=== PATIENT | female | born 1985 | race Caucasian/White ===

== ENCOUNTER 2018-01-20 14:04 | Emergency (ER) | payer MEDICAID ==
[~2018-01-20] VITALS: Ht 154.9 cm; Wt 65.9 kg
[~2018-01-20 14:04] MED LIST: CIPRO 500MG TA500 MG PO; LEVAQUIN 5500 MG/TA1 PO; MOTRIN 600600 MG/TAB PO; NIFEREX-15150 MG/CAP PO; NORCO 325 MG-51 TAB PO; PERCOCET 325 MG1 TA2 PO; PRENATAL MVI; PROBIOTIC-MAJOR PO; PROCARDIA XL 3030 MG PO; PYRIDIUM 100MG100 MG PO; ZOFRAN 4MG T4 MG/TAB PO
[2018-01-20 14:11] VITALS: TEMP 97.8
[2018-01-20] MEDS ORDERED: ZESTRIL 10MG10 MG PO ×2 (14:13→17:33)
[2018-01-20] MEDS ORDERED: LATUDA20 MG PO (14:14)
[2018-01-20] MEDS ORDERED: ATARAX 25MG25 MG/TAB PO (14:14)
[2018-01-20 14:27] LABS: COLLECTION METHOD CLEAN CATCH
[2018-01-20 14:38] LABS: MUCOUS Present /lpf; PH 8 (5-8); URINE APPEARANCE Hazy; URINE BACTERIA None Seen /hpf; URINE BILIRUBIN Negative (NEGATIVE); URINE BLOOD Negative (NEGATIVE); URINE COLOR Yellow; URINE GLUCOSE Negative (NEGATIVE); URINE KETONE Negative (NEGATIVE); URINE LEUKOCYTE ESTERASE Trace (NEGATIVE); URINE NITRATE Negative (NEGATIVE); URINE PROTEIN(semi-quant) Negative (NEGATIVE); URINE UROBILINOGEN Negative (NEGATIVE)
[2018-01-20] MEDS ORDERED: MOTRIN 800800 MG/TAB PO (16:45)
[2018-01-20 17:30] LABS: BASO # 0.1 (0.0-0.2); BASO % 0.9 % (0.0-2.0); EOS # 0.3 (0.0-0.7); EOS % 2.6 % (0-4.0); GRAN # 6.5 (1.4-6.5); GRAN % 65.5 % (42.2-75.2); HEMATOCRIT 45.5 % (37.0-47.0); HEMOGLOBIN 15.6 g/dl (12.5-16.0); LYMPH # 2.2 (1.2-3.4); LYMPH % 22.1 % (20.0-51.0); MEAN CELL VOLUME 88 fl (80.0-100.0); MEAN CORPUSCULAR HEMOGLOBIN 30 pg (27.0-31.0); MEAN CORPUSCULAR HGB CONC 34 g/dl (33.0-37.0); MEAN PLATELET VOLUME 9.4 fl (7.4-10.4); MONO # 0.8 (0.1-0.6); MONO % 8.3 % (1.7-9.3); PLATELET COUNT 336 K/mm3 (130-400); RED BLOOD COUNT 5.18 M/mm3 (4.10-5.30); REDCELL DISTRIBUTION WIDTH-CV 13.6 % (11.5-14.5)
[2018-01-20] MEDS ORDERED: ZOFRAN 4MG T4 MG/TAB PO (17:33)
[2018-01-20 18:01] LABS: CALCIUM 9.2 mg/dL (8.4-10.2); CREATININE, serum 0.58 mg/dL (0.52-1.25); POTASSIUM 4.1 mmol/L (3.4-5.0)
[2018-01-20] MEDS ORDERED: ULTRAM 50MG TAB50 MG PO (18:21)
[2018-01-20 18:36] VITALS: BP 165/94; PULSE 85
== END 2018-01-20 18:36 | disposition home or self-care (01) ==
LOC: COL.ER 14:04
PROVIDERS: Emergency Medicine; Surgery
DX: R10.9 Unspecified abdominal pain (principal); Q61.5 Medullary cystic kidney
CPT/HCPCS: J0780; J1200; J3010; J7030

== ENCOUNTER 2018-01-23 12:13 | Emergency (ER) | payer MEDICAID ==
[~2018-01-23] VITALS: Ht 154.9 cm; Wt 65.0 kg
[~2018-01-23 12:13] MED LIST changes: +ATARAX 25MG25 MG/TAB PO; +LATUDA20 MG PO; +MOTRIN 800800 MG/TAB PO; +ULTRAM 50MG TAB50 MG PO; +ZESTRIL 10MG10 MG PO
[2018-01-23 12:17] VITALS: BP 145/70; TEMP 97.7
[2018-01-23 13:04] LABS: BASO # 0.1 (0.0-0.2); BASO % 1.3 % (0.0-2.0); EOS # 0.3 (0.0-0.7); EOS % 4.7 % (0-4.0); GRAN # 3.6 (1.4-6.5); GRAN % 52.8 % (42.2-75.2); HEMATOCRIT 48.2 % (37.0-47.0); LYMPH % 29.1 % (20.0-51.0); MEAN CELL VOLUME 89 fl (80.0-100.0); MEAN CORPUSCULAR HEMOGLOBIN 30 pg (27.0-31.0); MEAN CORPUSCULAR HGB CONC 33 g/dl (33.0-37.0); MEAN PLATELET VOLUME 9.3 fl (7.4-10.4); MONO # 0.8 (0.1-0.6); MONO % 11.7 % (1.7-9.3); PLATELET COUNT 341 K/mm3 (130-400); RED BLOOD COUNT 5.42 M/mm3 (4.10-5.30); REDCELL DISTRIBUTION WIDTH-CV 13.7 % (11.5-14.5)
[2018-01-23 13:15] LABS: ALBUMIN 4.4 gm/dL (3.5-5.0); BILIRUBIN,TOTAL 0.5 mg/dL (0.0-1.0); CALCIUM 9.7 mg/dL (8.4-10.2); CREATININE, serum 0.65 mg/dL (0.52-1.25); POTASSIUM 4.4 mmol/L (3.4-5.0); TOTAL PROTEIN 7.9 gm/dL (6.4-8.2)
[2018-01-23 13:19] LABS: C-REACTIVE PROTEIN 0.5 mg/dL (0.0-0.9)
[2018-01-23 13:24] LABS: TRICYCLIC ANTIDEPRESS URINE NEGATIVE
[2018-01-23] MEDS ORDERED: NORCO 325 MG-51 TAB PO (13:54)
[2018-01-23 14:29] LABS: COLLECTION METHOD CLEAN CATCH
[2018-01-23 14:31] VITALS: PULSE 98
[2018-01-23 14:35] LABS: MUCOUS Present /lpf; PH 7 (5-8); URINE APPEARANCE Clear; URINE BACTERIA None Seen /hpf; URINE BILIRUBIN Negative (NEGATIVE); URINE BLOOD Negative (NEGATIVE); URINE COLOR Yellow; URINE GLUCOSE Negative (NEGATIVE); URINE KETONE Negative (NEGATIVE); URINE LEUKOCYTE ESTERASE Negative (NEGATIVE); URINE NITRATE Negative (NEGATIVE); URINE PROTEIN(semi-quant) Negative (NEGATIVE); URINE RBC 0-2 /hpf; URINE UROBILINOGEN Negative (NEGATIVE)
== END 2018-01-23 14:32 | disposition home or self-care (01) ==
LOC: COL.ER 12:13
PROVIDERS: Physician Assistant
DX: R10.9 Unspecified abdominal pain (principal); F31.9 Bipolar disorder, unspecified; F41.9 Anxiety disorder, unspecified; F17.210 Nicotine dependence, cigarettes, uncomplicated; Z87.442 Personal history of urinary calculi
CPT/HCPCS: J2405; J3010; J7030

== ENCOUNTER 2018-01-29 18:38 | Emergency (ER) | payer MEDICAID ==
[~2018-01-29] VITALS: Ht 154.9 cm; Wt 65.9 kg
[2018-01-29 18:41] VITALS: TEMP 98.2
[2018-01-29 18:52] LABS: COLLECTION METHOD CLEAN CATCH
[2018-01-29 18:59] LABS: MUCOUS Present /lpf; PH 7 (5-8); URINE APPEARANCE Hazy; URINE BACTERIA None Seen /hpf; URINE BILIRUBIN Negative (NEGATIVE); URINE BLOOD Negative (NEGATIVE); URINE COLOR Yellow; URINE GLUCOSE Negative (NEGATIVE); URINE KETONE Negative (NEGATIVE); URINE LEUKOCYTE ESTERASE 2+ (NEGATIVE); URINE NITRATE Negative (NEGATIVE); URINE PROTEIN(semi-quant) Negative (NEGATIVE); URINE RBC 0-2 /hpf; URINE UROBILINOGEN Negative (NEGATIVE)
[2018-01-29] MEDS ORDERED: PERCOCET 325 MG1 TA2 PO (19:55)
[2018-01-29 20:05] VITALS: BP 135/88; PULSE 91
== END 2018-01-29 20:06 | disposition home or self-care (01) ==
LOC: COL.ER 18:38
PROVIDERS: Emergency Medicine
DX: R51 Headache (principal); R10.9 Unspecified abdominal pain; F17.210 Nicotine dependence, cigarettes, uncomplicated; Z95.5 Presence of coronary angioplasty implant and graft
CPT/HCPCS: J3010

== ENCOUNTER 2018-02-08 18:04 | Emergency (ER) | payer MEDICAID ==
[~2018-02-08] VITALS: Ht 154.9 cm; Wt 68.2 kg
[2018-02-08 18:05] VITALS: BP 143/126; PULSE 97; TEMP 97.4
[2018-02-08 18:26] LABS: COLLECTION METHOD CLEAN CATCH
[2018-02-08 18:33] LABS: MUCOUS Present /lpf; PH 6 (5-8); URINE APPEARANCE Hazy; URINE BACTERIA None Seen /hpf; URINE BILIRUBIN Negative (NEGATIVE); URINE BLOOD 1+ (NEGATIVE); URINE COLOR Yellow; URINE GLUCOSE Negative (NEGATIVE); URINE KETONE Negative (NEGATIVE); URINE LEUKOCYTE ESTERASE Trace (NEGATIVE); URINE NITRATE Negative (NEGATIVE); URINE PROTEIN(semi-quant) Negative (NEGATIVE); URINE UROBILINOGEN Negative (NEGATIVE)
[2018-02-08] MEDS ORDERED: TESSALON P100 MG/CAP PO (19:40)
[2018-02-08] MEDS ORDERED: MACROBID 1100 MG/CAP PO ×2 (19:40)
[2018-02-08] MEDS ORDERED: CIPRO 250MG TA250 MG PO (19:50)
== END 2018-02-08 19:57 | disposition home or self-care (01) ==
LOC: COL.ER 18:04
PROVIDERS: Physician Assistant
DX: J40 Bronchitis, not specified as acute or chronic (principal); J06.9 Acute upper respiratory infection, unspecified; N39.0 Urinary tract infection, site not specified; F17.210 Nicotine dependence, cigarettes, uncomplicated

== ENCOUNTER 2018-02-15 12:51 | Emergency (ER) | payer MEDICAID ==
[~2018-02-15] VITALS: Ht 154.9 cm; Wt 68.2 kg
[~2018-02-15 12:51] MED LIST changes: +CIPRO 250MG TA250 MG PO; +MACROBID 1100 MG/CAP PO; +TESSALON P100 MG/CAP PO
[2018-02-15 13:32] LABS: COLLECTION METHOD CLEAN CATCH
[2018-02-15 13:41] LABS: MUCOUS Present /lpf; PH 6 (5-8); SQUAMOUS EPITHELIAL 20-50 /hpf; URINE APPEARANCE Cloudy; URINE BACTERIA None Seen /hpf; URINE BILIRUBIN Negative (NEGATIVE); URINE BLOOD Negative (NEGATIVE); URINE COLOR Amber; URINE GLUCOSE Negative (NEGATIVE); URINE KETONE Trace (NEGATIVE); URINE LEUKOCYTE ESTERASE 3+ (NEGATIVE); URINE NITRATE Negative (NEGATIVE); URINE PROTEIN(semi-quant) 1+ (NEGATIVE)
[2018-02-15 14:00] VITALS: BP 128/86; PULSE 98; TEMP 97.7
[2018-02-15] MEDS ORDERED: PHENERGAN 25 TA25 MG PO (15:30)
== END 2018-02-15 15:30 | disposition home or self-care (01) ==
LOC: COL.ER 12:51
PROVIDERS: Physician Assistant
DX: R10.9 Unspecified abdominal pain (principal); F17.210 Nicotine dependence, cigarettes, uncomplicated; Z87.442 Personal history of urinary calculi; Z88.6 Allergy status to analgesic agent; Z88.1 Allergy status to other antibiotic agents
CPT/HCPCS: J2270; J2550

== ENCOUNTER 2019-06-11 17:39 | Emergency (ER) | payer SELFPAY ==
[~2019-06-11] VITALS: Ht 154.9 cm; Wt 80.5 kg
[~2019-06-11 17:39] MED LIST changes: +PHENERGAN 25 TA25 MG PO
[2019-06-11 17:57] VITALS: TEMP 98.3
[2019-06-11 18:02] LABS: COLLECTION METHOD CLEAN CATCH
[2019-06-11 18:07] LABS: PH 6 (5-8); URINE APPEARANCE Hazy; URINE BACTERIA None Seen /hpf; URINE BILIRUBIN Negative (NEGATIVE); URINE BLOOD Negative (NEGATIVE); URINE COLOR Straw; URINE GLUCOSE Negative (NEGATIVE); URINE KETONE Negative (NEGATIVE); URINE LEUKOCYTE ESTERASE Negative (NEGATIVE); URINE NITRATE Negative (NEGATIVE); URINE PROTEIN(semi-quant) Negative (NEGATIVE); URINE RBC 0-2 /hpf; URINE UROBILINOGEN Negative (NEGATIVE)
[2019-06-11] MEDS ORDERED: NAPROSYN500 MG PO (18:39)
[2019-06-11 19:17] LABS: BASO # 0.1 (0.0-0.2); BASO % 0.9 % (0.0-2.0); EOS # 0.4 (0.0-0.7); EOS % 4.1 % (0-4.0); GRAN # 5.7 (1.4-6.5); GRAN % 59.3 % (42.2-75.2); HEMATOCRIT 39.9 % (37.0-47.0); HEMOGLOBIN 13.1 g/dl (12.5-16.0); LYMPH # 2.7 (1.2-3.4); LYMPH % 27.9 % (20.0-51.0); MEAN CELL VOLUME 89 fl (80.0-100.0); MEAN CORPUSCULAR HEMOGLOBIN 29 pg (27.0-31.0); MEAN CORPUSCULAR HGB CONC 33 g/dl (33.0-37.0); MEAN PLATELET VOLUME 9.7 fl (7.4-10.4); MONO # 0.7 (0.1-0.6); MONO % 7.1 % (1.7-9.3); PLATELET COUNT 390 K/mm3 (130-400); RED BLOOD COUNT 4.47 M/mm3 (4.10-5.30); REDCELL DISTRIBUTION WIDTH-CV 12.6 % (11.5-14.5)
[2019-06-11 19:27] LABS: C-REACTIVE PROTEIN 0.9 mg/dL (0.0-0.9); CALCIUM 9.1 mg/dL (8.4-10.2); CREATININE, serum 0.51 (0.52-1.25)
[2019-06-11] MEDS ORDERED: NORCO 325 MG-51 TAB PO (20:02)
[2019-06-11 20:24] VITALS: BP 124/80; PULSE 78
== END 2019-06-11 20:24 | disposition home or self-care (01) ==
LOC: COL.ER 17:39
PROVIDERS: Emergency Medicine
DX: N23 Unspecified renal colic (principal)
CPT/HCPCS: J0780; J1170; J7030; Q9967

== ENCOUNTER 2019-06-19 07:49 | Emergency (ER) | payer OTHER ==
[~2019-06-19] VITALS: Ht 154.9 cm; Wt 83.6 kg
[~2019-06-19 07:49] MED LIST changes: +NAPROSYN500 MG PO
[2019-06-19 07:56] VITALS: BP 134/94; TEMP 97.4
[2019-06-19 08:07] LABS: COLLECTION METHOD CLEAN CATCH
[2019-06-19 08:11] LABS: BASO # 0.1 (0.0-0.2); BASO % 0.7 % (0.0-2.0); EOS # 0.3 (0.0-0.7); EOS % 3.9 % (0-4.0); GRAN # 5.8 (1.4-6.5); GRAN % 68.5 % (42.2-75.2); HEMATOCRIT 44.8 % (37.0-47.0); HEMOGLOBIN 14.5 g/dl (12.5-16.0); LYMPH # 1.7 (1.2-3.4); LYMPH % 19.9 % (20.0-51.0); MEAN CELL VOLUME 90 fl (80.0-100.0); MEAN CORPUSCULAR HEMOGLOBIN 29 pg (27.0-31.0); MEAN CORPUSCULAR HGB CONC 32 g/dl (33.0-37.0); MEAN PLATELET VOLUME 9.2 fl (7.4-10.4); MONO # 0.6 (0.1-0.6); MONO % 6.5 % (1.7-9.3); PLATELET COUNT 335 K/mm3 (130-400); RED BLOOD COUNT 4.97 M/mm3 (4.10-5.30); REDCELL DISTRIBUTION WIDTH-CV 13.5 % (11.5-14.5)
[2019-06-19 08:13] LABS: PH 6 (5-8); URINE APPEARANCE Clear; URINE BACTERIA None Seen /hpf; URINE BILIRUBIN Negative (NEGATIVE); URINE BLOOD Negative (NEGATIVE); URINE COLOR Colorless; URINE GLUCOSE Negative (NEGATIVE); URINE KETONE Negative (NEGATIVE); URINE LEUKOCYTE ESTERASE Negative (NEGATIVE); URINE NITRATE Negative (NEGATIVE); URINE PROTEIN(semi-quant) Negative (NEGATIVE); URINE RBC 0-2 /hpf; URINE UROBILINOGEN Negative (NEGATIVE)
[2019-06-19 08:24] LABS: ALBUMIN 4.6 gm/dL (3.5-5.0); BILIRUBIN,TOTAL 0.3 mg/dL (0.0-1.0); C-REACTIVE PROTEIN 1.4 mg/dL (0.0-0.9); CALCIUM 9.9 mg/dL (8.4-10.2); CREATININE, serum 0.51 (0.52-1.25); POTASSIUM 3.8 mmol/L (3.4-5.0); TOTAL PROTEIN 8.2 gm/dL (6.4-8.2)
[2019-06-19] MEDS ORDERED: NORCO 325 MG-7.1 TAB PO (08:40)
[2019-06-19 08:49] VITALS: PULSE 82
== END 2019-06-19 08:49 | disposition home or self-care (01) ==
LOC: COL.ER 07:49
PROVIDERS: Family Medicine
DX: R10.9 Unspecified abdominal pain (principal); I10 Essential (primary) hypertension; Z87.442 Personal history of urinary calculi
CPT/HCPCS: J2405; J3010; J7030

== ENCOUNTER 2019-10-06 18:13 | Emergency (ER) | payer SELFPAY ==
[~2019-10-06] VITALS: Ht 154.9 cm; Wt 80.0 kg
[~2019-10-06 18:13] MED LIST changes: +NORCO 325 MG-7.1 TAB PO
[2019-10-06 18:22] VITALS: BP 126/84; TEMP 97.7
[2019-10-06 19:10] LABS: COLLECTION METHOD CLEAN CATCH
[2019-10-06 19:15] LABS: BASO # 0.1 (0.0-0.2); EOS # 0.3 (0.0-0.7); EOS % 3.2 % (0-4.0); GRAN # 4.5 (1.4-6.5); GRAN % 56.2 % (42.2-75.2); HEMATOCRIT 41.9 % (37.0-47.0); LYMPH # 2.6 (1.2-3.4); LYMPH % 32.2 % (20.0-51.0); MEAN CELL VOLUME 87 fl (80.0-100.0); MEAN CORPUSCULAR HEMOGLOBIN 29 pg (27.0-31.0); MEAN CORPUSCULAR HGB CONC 33 g/dl (33.0-37.0); MONO # 0.6 (0.1-0.6); MONO % 7.1 % (1.7-9.3); PLATELET COUNT 401 K/mm3 (130-400); RED BLOOD COUNT 4.84 M/mm3 (4.10-5.30); REDCELL DISTRIBUTION WIDTH-CV 12.3 % (11.5-14.5)
[2019-10-06 19:25] LABS: MUCOUS Present /lpf; PH 6 (5-8); URINE APPEARANCE Hazy; URINE BACTERIA None Seen /hpf; URINE BILIRUBIN Negative (NEGATIVE); URINE BLOOD 1+ (NEGATIVE); URINE COLOR Yellow; URINE GLUCOSE Negative (NEGATIVE); URINE KETONE Negative (NEGATIVE); URINE LEUKOCYTE ESTERASE Trace (NEGATIVE); URINE NITRATE Negative (NEGATIVE); URINE PROTEIN(semi-quant) Negative (NEGATIVE); URINE UROBILINOGEN Negative (NEGATIVE)
[2019-10-06 19:27] LABS: ALBUMIN 4.5 gm/dL (3.5-5.0); BILIRUBIN,TOTAL 0.3 mg/dL (0.0-1.0); CALCIUM 9.9 mg/dL (8.4-10.2); CREATININE, serum 0.55 (0.52-1.25); POTASSIUM 3.7 mmol/L (3.4-5.0)
[2019-10-06] MEDS ORDERED: NORCO 325 MG-7.1 TAB PO (20:28)
[2019-10-06 20:35] VITALS: PULSE 97
== END 2019-10-06 20:37 | disposition home or self-care (01) ==
LOC: COL.ER 18:13
PROVIDERS: Nurse Practitioner
DX: R10.9 Unspecified abdominal pain (principal); F31.9 Bipolar disorder, unspecified; F17.210 Nicotine dependence, cigarettes, uncomplicated; Z88.5 Allergy status to narcotic agent; Z88.1 Allergy status to other antibiotic agents; Z87.442 Personal history of urinary calculi
CPT/HCPCS: J1170; J2270; J2405; J7030

== ENCOUNTER 2019-10-12 18:07 | Emergency (ER) | payer SELFPAY ==
[~2019-10-12] VITALS: Ht 154.9 cm; Wt 81.8 kg
[2019-10-12 18:19] VITALS: TEMP 98.9
[2019-10-12 22:14] VITALS: BP 137/80; PULSE 87
== END 2019-10-12 22:15 | disposition home or self-care (01) ==
LOC: COL.ER 18:07
DX: S46.912A Strain of unspecified muscle, fascia and tendon at shoulder and upper arm level, left arm, initial encounter (principal); I10 Essential (primary) hypertension; F41.9 Anxiety disorder, unspecified; F17.210 Nicotine dependence, cigarettes, uncomplicated
CPT/HCPCS: J1170; J2360

== ENCOUNTER 2019-11-23 17:11 | Emergency (ER) | payer SELFPAY ==
[~2019-11-23] VITALS: Ht 154.9 cm; Wt 84.5 kg
[2019-11-23 18:04] LABS: COLLECTION METHOD CLEAN CATCH
[2019-11-23 18:07] LABS: BASO # 0.1 (0.0-0.2); BASO % 0.9 % (0.0-2.0); EOS # 0.3 (0.0-0.7); GRAN # 4.7 (1.4-6.5); HEMOGLOBIN 13.9 g/dl (12.5-16.0); LYMPH # 2.3 (1.2-3.4); LYMPH % 28.8 % (20.0-51.0); MEAN CELL VOLUME 86 fl (80.0-100.0); MEAN CORPUSCULAR HEMOGLOBIN 29 pg (27.0-31.0); MEAN CORPUSCULAR HGB CONC 34 g/dl (33.0-37.0); MEAN PLATELET VOLUME 9.1 fl (7.4-10.4); MONO # 0.6 (0.1-0.6); PLATELET COUNT 309 K/mm3 (130-400); RED BLOOD COUNT 4.77 M/mm3 (4.10-5.30); REDCELL DISTRIBUTION WIDTH-CV 12.5 % (11.5-14.5)
[2019-11-23 18:20] LABS: ALBUMIN 4.3 gm/dL (3.5-5.0); BILIRUBIN,TOTAL 0.2 mg/dL (0.0-1.0); CALCIUM 8.9 mg/dL (8.4-10.2); CREATININE, serum 0.56 (0.52-1.25); POTASSIUM 3.4 mmol/L (3.4-5.0); TOTAL PROTEIN 7.6 gm/dL (6.4-8.2)
[2019-11-23 18:31] LABS: MUCOUS Present /lpf; URINE BACTERIA Occasional /hpf
[2019-11-23 19:08] LABS: PH 6 (5-8); URINE APPEARANCE Hazy; URINE BILIRUBIN Negative (NEGATIVE); URINE BLOOD 1+ (NEGATIVE); URINE COLOR Yellow; URINE GLUCOSE Negative (NEGATIVE); URINE KETONE Negative (NEGATIVE); URINE LEUKOCYTE ESTERASE 1+ (NEGATIVE); URINE NITRATE Negative (NEGATIVE); URINE PROTEIN(semi-quant) Negative (NEGATIVE); URINE UROBILINOGEN Negative (NEGATIVE)
[2019-11-23] MEDS ORDERED: SEPTRA DS 8001 TAB PO (20:08)
[2019-11-23] MEDS ORDERED: PERCOCET 325 MG1 TA2 PO (20:08)
[2019-11-23 20:17] VITALS: BP 132/86; PULSE 76; TEMP 98.4
== END 2019-11-23 20:17 | disposition home or self-care (01) ==
LOC: COL.ER 17:11
PROVIDERS: Emergency Medicine
DX: N39.0 Urinary tract infection, site not specified (principal); F17.210 Nicotine dependence, cigarettes, uncomplicated; Z87.442 Personal history of urinary calculi
CPT/HCPCS: J1170; J2405; J3010; J7030; Q9967

== ENCOUNTER 2019-12-15 12:29 | Emergency (ER) | payer SELFPAY ==
[~2019-12-15] VITALS: Ht 154.9 cm; Wt 84.5 kg
[~2019-12-15 12:29] MED LIST changes: +SEPTRA DS 8001 TAB PO
[2019-12-15 12:53] VITALS: BP 155/67; TEMP 97.9
[2019-12-15 13:06] LABS: COLLECTION METHOD CLEAN CATCH
[2019-12-15 13:20] LABS: MUCOUS Present /lpf; PH 6 (5-8); SQUAMOUS EPITHELIAL 20-50 /hpf; URINE APPEARANCE Cloudy; URINE BACTERIA None Seen /hpf; URINE BILIRUBIN Negative (NEGATIVE); URINE BLOOD Negative (NEGATIVE); URINE COLOR Yellow; URINE GLUCOSE Negative (NEGATIVE); URINE KETONE 1+ (NEGATIVE); URINE LEUKOCYTE ESTERASE Trace (NEGATIVE); URINE NITRATE Negative (NEGATIVE); URINE PROTEIN(semi-quant) 1+ (NEGATIVE); URINE RBC None Seen /hpf; URINE UROBILINOGEN Negative (NEGATIVE)
[2019-12-15 15:23] LABS: COLLECTION METHOD CLEAN CATCH
[2019-12-15 15:31] LABS: MUCOUS Present /lpf; PH 7 (5-8); URINE APPEARANCE Hazy; URINE BACTERIA None Seen /hpf; URINE BILIRUBIN Negative (NEGATIVE); URINE BLOOD Negative (NEGATIVE); URINE COLOR Yellow; URINE GLUCOSE Negative (NEGATIVE); URINE KETONE 1+ (NEGATIVE); URINE LEUKOCYTE ESTERASE Trace (NEGATIVE); URINE NITRATE Negative (NEGATIVE); URINE PROTEIN(semi-quant) Negative (NEGATIVE); URINE UROBILINOGEN Negative (NEGATIVE)
[2019-12-15] MEDS ORDERED: CIPRO 500MG TA500 MG PO (15:50)
[2019-12-15] MEDS ORDERED: ZOFRAN ODT4 MG PO (15:50)
[2019-12-15 16:00] VITALS: PULSE 84
== END 2019-12-15 16:06 | disposition home or self-care (01) ==
LOC: COL.ER 12:29
PROVIDERS: Family Medicine; Physician Assistant
DX: N39.0 Urinary tract infection, site not specified (principal); F17.210 Nicotine dependence, cigarettes, uncomplicated; Z88.1 Allergy status to other antibiotic agents; Z88.8 Allergy status to other drugs, medicaments and biological substances

== ENCOUNTER 2019-12-20 17:12 | Emergency (ER) | payer SELFPAY ==
[~2019-12-20] VITALS: Ht 154.9 cm; Wt 84.5 kg
[~2019-12-20 17:12] MED LIST changes: +ZOFRAN ODT4 MG PO
[2019-12-20 17:20] VITALS: TEMP 98.2
[2019-12-20 18:05] LABS: COLLECTION METHOD CLEAN CATCH
[2019-12-20] MEDS ORDERED: ADDERALL5 MG PO (18:06)
[2019-12-20 18:16] LABS: MUCOUS Present /lpf; PH 6 (5-8); URINE APPEARANCE Hazy; URINE BACTERIA None Seen /hpf; URINE BILIRUBIN Negative (NEGATIVE); URINE BLOOD Negative (NEGATIVE); URINE COLOR Yellow; URINE GLUCOSE Negative (NEGATIVE); URINE KETONE Negative (NEGATIVE); URINE LEUKOCYTE ESTERASE Trace (NEGATIVE); URINE NITRATE Negative (NEGATIVE); URINE PROTEIN(semi-quant) Negative (NEGATIVE); URINE RBC 0-2 /hpf; URINE UROBILINOGEN Negative (NEGATIVE)
[2019-12-20] MEDS ORDERED: ZOFRAN ODT4 MG PO (18:17)
[2019-12-20 19:16] VITALS: BP 111/75; PULSE 78
== END 2019-12-20 19:17 | disposition home or self-care (01) ==
LOC: COL.ER 17:12
PROVIDERS: Emergency Medicine
DX: N20.1 Calculus of ureter (principal); Z96.0 Presence of urogenital implants
CPT/HCPCS: J1170

== ENCOUNTER 2020-01-06 17:16 | Emergency (ER) | payer SELFPAY ==
[~2020-01-06] VITALS: Ht 154.9 cm; Wt 81.8 kg
[~2020-01-06 17:16] MED LIST changes: +ADDERALL5 MG PO
[2020-01-06] MEDS ORDERED: ADDERALL10 MG PO (17:59)
[2020-01-06] MEDS ORDERED: CATAPRES 0.1MG0.1 MG PO (18:00)
[2020-01-06] MEDS ORDERED: PROZAC60 MG (18:00)
[2020-01-06 19:45] LABS: STREP SCREEN NEGATIVE
[2020-01-06 20:05] VITALS: BP 142/70; PULSE 88; TEMP 97.2
== END 2020-01-06 20:10 | disposition home or self-care (01) ==
LOC: COL.ER 17:16
PROVIDERS: Physician Assistant
DX: J02.9 Acute pharyngitis, unspecified (principal); G89.29 Other chronic pain; R10.2 Pelvic and perineal pain; F31.9 Bipolar disorder, unspecified; F41.9 Anxiety disorder, unspecified; F17.210 Nicotine dependence, cigarettes, uncomplicated

== ENCOUNTER 2020-08-14 15:42 | Emergency (ER) | payer SELFPAY ==
[~2020-08-14] VITALS: Ht 154.9 cm; Wt 69.5 kg
[~2020-08-14 15:42] MED LIST changes: +ADDERALL10 MG PO; +CATAPRES 0.1MG0.1 MG PO; +PROZAC60 MG
[2020-08-14 16:34] LABS: BASO # 0.1 (0.0-0.2); BASO % 0.9 % (0.0-2.0); EOS # 0.4 (0.0-0.7); EOS % 5.5 % (0-4.0); GRAN % 60.2 % (42.2-75.2); HEMATOCRIT 43.6 % (37.0-47.0); HEMOGLOBIN 14.3 g/dl (12.5-16.0); LYMPH # 1.7 (1.2-3.4); LYMPH % 25.8 % (20.0-51.0); MEAN CELL VOLUME 90 fl (80.0-100.0); MEAN CORPUSCULAR HEMOGLOBIN 29 pg (27.0-31.0); MEAN CORPUSCULAR HGB CONC 33 g/dl (33.0-37.0); MEAN PLATELET VOLUME 9.1 fl (7.4-10.4); MONO # 0.5 (0.1-0.6); MONO % 7.3 % (1.7-9.3); PLATELET COUNT 315 K/mm3 (130-400); RED BLOOD COUNT 4.87 M/mm3 (4.10-5.30); REDCELL DISTRIBUTION WIDTH-CV 13.5 % (11.5-14.5)
[2020-08-14 16:47] LABS: ALANINE AMINOTRANSFERASE 36 U/L (4-34); ALBUMIN 4.4 gm/dL (3.5-5.0); ALKALINE PHOSPHATASE 74 U/L (50-136); ANION GAP 5 mmol/L (7-16); AST,SGOT 41 U/L (15-37); BILIRUBIN,TOTAL 0.5 mg/dL (0.0-1.0); BLOOD UREA NITROGEN 13 mg/dL (7-17); C-REACTIVE PROTEIN < 0.5 mg/dL (0.0-0.9); CALCIUM 9.4 mg/dL (8.4-10.2); CARBON DIOXIDE 29 mmol/L (22-30); CHLORIDE 104 mmol/L (98-107); CREATININE, serum 0.69 (0.52-1.25); GLUCOSE 79 mg/dL (74-106); POTASSIUM 4.3 mmol/L (3.4-5.0); SODIUM 138 mmol/L (137-145); TOTAL PROTEIN 7.5 gm/dL (6.4-8.2)
[2020-08-14 17:21] LABS: COLLECTION METHOD CLEAN CATCH
[2020-08-14 17:33] LABS: MUCOUS Present /lpf; PH 6 (5-8); SQUAMOUS EPITHELIAL >50 /hpf; URINE APPEARANCE Cloudy; URINE BACTERIA Occasional /hpf; URINE BILIRUBIN Negative (NEGATIVE); URINE BLOOD Negative (NEGATIVE); URINE COLOR Amber; URINE GLUCOSE Negative (NEGATIVE); URINE KETONE Negative (NEGATIVE); URINE LEUKOCYTE ESTERASE 2+ (NEGATIVE); URINE NITRATE Negative (NEGATIVE); URINE PROTEIN(semi-quant) 1+ (NEGATIVE)
[2020-08-14 18:27] VITALS: BP 136/68; PULSE 70; TEMP 98
== END 2020-08-14 18:25 | disposition home or self-care (01) ==
LOC: COL.ER 15:42
PROVIDERS: Emergency Medicine
DX: Q61.5 Medullary cystic kidney (principal); Z32.02 Encounter for pregnancy test, result negative; Z88.1 Allergy status to other antibiotic agents; Z88.6 Allergy status to analgesic agent; Z79.2 Long term (current) use of antibiotics; Z79.899 Other long term (current) drug therapy

== ENCOUNTER 2020-08-26 12:14 | Emergency (ER) | payer SELFPAY ==
[~2020-08-26] VITALS: Ht 154.9 cm; Wt 68.2 kg
[2020-08-26 13:09] LABS: COLLECTION METHOD CLEAN CATCH
[2020-08-26 13:11] LABS: BASO # 0.1 (0.0-0.2); BASO % 0.8 % (0.0-2.0); EOS # 0.4 (0.0-0.7); EOS % 5.1 % (0-4.0); GRAN # 4.5 (1.4-6.5); GRAN % 61.8 % (42.2-75.2); HEMATOCRIT 41.8 % (37.0-47.0); HEMOGLOBIN 13.9 g/dl (12.5-16.0); LYMPH # 1.7 (1.2-3.4); LYMPH % 23.7 % (20.0-51.0); MEAN CELL VOLUME 90 fl (80.0-100.0); MEAN CORPUSCULAR HEMOGLOBIN 30 pg (27.0-31.0); MEAN CORPUSCULAR HGB CONC 33 g/dl (33.0-37.0); MEAN PLATELET VOLUME 9.4 fl (7.4-10.4); MONO # 0.6 (0.1-0.6); MONO % 8.5 % (1.7-9.3); PLATELET COUNT 319 K/mm3 (130-400); RED BLOOD COUNT 4.63 M/mm3 (4.10-5.30); REDCELL DISTRIBUTION WIDTH-CV 13.4 % (11.5-14.5)
[2020-08-26 13:16] LABS: MUCOUS Present /lpf; PH 8 (5-8); SQUAMOUS EPITHELIAL 20-50 /hpf; URINE APPEARANCE Cloudy; URINE BACTERIA Rare /hpf; URINE BILIRUBIN Negative (NEGATIVE); URINE BLOOD Negative (NEGATIVE); URINE COLOR Yellow; URINE GLUCOSE Negative (NEGATIVE); URINE KETONE Negative (NEGATIVE); URINE LEUKOCYTE ESTERASE Negative (NEGATIVE); URINE NITRATE Negative (NEGATIVE); URINE PROTEIN(semi-quant) Negative (NEGATIVE); URINE UROBILINOGEN Negative (NEGATIVE)
[2020-08-26 13:25] LABS: ALANINE AMINOTRANSFERASE 28 U/L (4-34); ALBUMIN 4.2 gm/dL (3.5-5.0); ALKALINE PHOSPHATASE 71 U/L (50-136); ANION GAP 6 mmol/L (7-16); AST,SGOT 35 U/L (15-37); BILIRUBIN,TOTAL 0.5 mg/dL (0.0-1.0); BLOOD UREA NITROGEN 9 mg/dL (7-17); CALCIUM 9.1 mg/dL (8.4-10.2); CARBON DIOXIDE 26 mmol/L (22-30); CHLORIDE 104 mmol/L (98-107); CREATININE, serum 0.51 (0.52-1.25); GLUCOSE 85 mg/dL (74-106); LIPASE 62 U/L (23-300); POTASSIUM 3.5 mmol/L (3.4-5.0); SODIUM 136 mmol/L (137-145); TOTAL PROTEIN 7.2 gm/dL (6.4-8.2)
[2020-08-26 13:26] LABS: C-REACTIVE PROTEIN < 0.5 mg/dL (0.0-0.9)
[2020-08-26] MEDS ORDERED: NORCO 325 MG-51 TAB PO (14:07)
[2020-08-26 15:00] VITALS: BP 135/74; PULSE 66; TEMP 97.5
== END 2020-08-26 15:05 | disposition home or self-care (01) ==
LOC: COL.ER 12:14
PROVIDERS: Emergency Medicine
DX: O26.891 Other specified pregnancy related conditions, first trimester (principal); R10.9 Unspecified abdominal pain; Z3A.01 Less than 8 weeks gestation of pregnancy; Z88.1 Allergy status to other antibiotic agents
CPT/HCPCS: J1170; J2550; J7030

== ENCOUNTER 2021-04-26 16:28 | Emergency (ER) | payer MEDICAID ==
[~2021-04-26] VITALS: Ht 154.9 cm; Wt 77.3 kg
[2021-04-26 16:41] VITALS: BP 153/81; TEMP 98.1
[2021-04-26 17:48] LABS: COLLECTION METHOD CLEAN CATCH
[2021-04-26 18:06] LABS: BASO # 0.1 (0.0-0.2); BASO % 0.8 % (0.0-2.0); EOS # 0.3 (0.0-0.7); EOS % 3.2 % (0-4.0); GRAN # 6.1 (1.4-6.5); LYMPH # 1.9 (1.2-3.4); MEAN CELL VOLUME 90 fl (80.0-100.0); MEAN CORPUSCULAR HGB CONC 33 g/dl (33.0-37.0); MEAN PLATELET VOLUME 8.9 fl (7.4-10.4); MONO # 0.7 (0.1-0.6); MONO % 7.2 % (1.7-9.3); PLATELET COUNT 418 K/mm3 (130-400); RED BLOOD COUNT 3.28 M/mm3 (4.10-5.30); REDCELL DISTRIBUTION WIDTH-CV 14.3 % (11.5-14.5)
[2021-04-26 18:12] LABS: ALBUMIN 2.9 gm/dL (3.5-5.0); BILIRUBIN,TOTAL 0.1 mg/dL (0.0-1.0); C-REACTIVE PROTEIN 1.6 mg/dL (0.0-0.9); CREATININE, serum 0.75 (0.52-1.25); POTASSIUM 3.9 mmol/L (3.4-5.0); TOTAL PROTEIN 5.8 gm/dL (6.4-8.2)
[2021-04-26 18:14] LABS: HEMOGLOBIN 9.8 g/dl (12.5-16.0); MEAN CORPUSCULAR HEMOGLOBIN 30 pg (27.0-31.0)
[2021-04-26 18:15] LABS: HEMATOCRIT 29.5 % (37.0-47.0)
[2021-04-26 18:25] LABS: MUCOUS Present /lpf; PH 6 (5-8); URINE APPEARANCE Hazy; URINE BACTERIA None Seen /hpf; URINE BILIRUBIN Negative (NEGATIVE); URINE BLOOD 3+ (NEGATIVE); URINE COLOR Yellow; URINE GLUCOSE Negative (NEGATIVE); URINE KETONE Negative (NEGATIVE); URINE LEUKOCYTE ESTERASE 2+ (NEGATIVE); URINE NITRATE Negative (NEGATIVE); URINE PROTEIN(semi-quant) 1+ (NEGATIVE); URINE RBC >50 /hpf; URINE UROBILINOGEN Negative (NEGATIVE)
[2021-04-26] MEDS ORDERED: AMOXICILLIN 8751 TAB PO (20:09)
[2021-04-26] MEDS ORDERED: PERCOCET 325 MG1 TA2 PO (20:11)
[2021-04-26 20:32] VITALS: PULSE 68
== END 2021-04-26 20:32 | disposition home or self-care (01) ==
LOC: COL.ER 16:28
PROVIDERS: Nurse Practitioner
DX: N39.0 Urinary tract infection, site not specified (principal); Z88.1 Allergy status to other antibiotic agents; Z88.6 Allergy status to analgesic agent
CPT/HCPCS: Q9967

== ENCOUNTER 2021-12-19 15:37 | Emergency (ER) | payer SELFPAY ==
[~2021-12-19] VITALS: Ht 154.9 cm; Wt 86.4 kg
[~2021-12-19 15:37] MED LIST changes: +AMOXICILLIN 8751 TAB PO
[2021-12-19 16:22] VITALS: TEMP 97.6
[2021-12-19 16:37] LABS: COLLECTION METHOD CLEAN CATCH
[2021-12-19 16:45] LABS: MUCOUS Present (NOT PRESENT); PH 6 (5-8); URINE APPEARANCE Hazy (CLEAR/HAZY); URINE BACTERIA Rare /hpf (NONE SEEN); URINE BILIRUBIN Negative (NEGATIVE); URINE BLOOD Negative (NEGATIVE); URINE COLOR Yellow (YELLOW); URINE GLUCOSE Negative (NEGATIVE); URINE KETONE Negative (NEGATIVE); URINE LEUKOCYTE ESTERASE Negative (NEGATIVE); URINE NITRATE Negative (NEGATIVE); URINE PROTEIN(semi-quant) Negative (NEGATIVE); URINE RBC 0-2 /hpf (0-2); URINE UROBILINOGEN Negative (NEGATIVE)
[2021-12-19 17:13] LABS: BASO # 0.1 K/mm3 (0.0-0.2); BASO % 1.4 % (0.0-2.0); EOS # 0.3 K/mm3 (0.0-0.7); EOS % 4.5 % (0.0-4.0); GRAN # 3.2 K/mm3 (1.4-6.5); GRAN % 51.1 % (42.2-75.2); HEMATOCRIT 41.8 % (37.0-47.0); HEMOGLOBIN 13.7 g/dl (12.5-16.0); LYMPH # 2.1 K/mm3 (1.2-3.4); LYMPH % 32.8 % (20.0-51.0); MEAN CELL VOLUME 90 fl (80.0-100.0); MEAN CORPUSCULAR HEMOGLOBIN 30 pg (27-31); MEAN CORPUSCULAR HGB CONC 33 g/dl (33.0-37.0); MONO # 0.6 K/mm3 (0.1-0.6); PLATELET COUNT 377 K/mm3 (130-400); RED BLOOD COUNT 4.63 M/mm3 (4.10-5.30); REDCELL DISTRIBUTION WIDTH-CV 13.5 % (11.5-14.5)
[2021-12-19 17:28] LABS: ALBUMIN 4.2 gm/dL (3.5-5.0); BILIRUBIN,TOTAL 0.2 mg/dL (0.2-1.2); CALCIUM 9.6 mg/dL (8.4-10.2); CREATININE, serum 0.78 mg/dL (0.57-1.11); POTASSIUM 4.2 mmol/L (3.5-4.5); TOTAL PROTEIN 7.6 gm/dL (6.2-8.1)
[2021-12-19] MEDS ORDERED: NORCO 325 MG-51 TAB PO ×2 (18:10)
[2021-12-19] MEDS ORDERED: PERCOCET 325 MG1 TA2 PO (18:14)
[2021-12-19 18:15] VITALS: BP 144/80; PULSE 78
[2021-12-19] MEDS ORDERED: BACTRIM DS 8001 TAB PO (18:19)
== END 2021-12-19 18:15 | disposition home or self-care (01) ==
LOC: COL.ER 15:37
PROVIDERS: Emergency Medicine
DX: N13.2 Hydronephrosis with renal and ureteral calculous obstruction (principal); Q61.5 Medullary cystic kidney; F17.210 Nicotine dependence, cigarettes, uncomplicated; Z96.0 Presence of urogenital implants; Z98.890 Other specified postprocedural states; Z88.1 Allergy status to other antibiotic agents; Z88.6 Allergy status to analgesic agent; Z32.02 Encounter for pregnancy test, result negative
CPT/HCPCS: J1170; J2270; J7120

== ENCOUNTER 2022-01-03 13:48 | Day surgery (SDC) | payer SELFPAY ==
[~2022-01-03] VITALS: Ht 154.9 cm; Wt 87.6 kg
[~2022-01-03 13:48] MED LIST changes: +BACTRIM DS 8001 TAB PO
[2022-01-03] MEDS ORDERED: ZYPREXA15 MG PO (14:42)
[2022-01-03] MEDS ORDERED: FLOMAX 0.40.4 MG/CAP PO (14:43)
--- NOTE | 2022-01-03 15:23 | NUR ---
LR infusing at 100cc/hr 20G left wrist and Fentanyl 50mcg for left sided abdominal pain. Call light in reach.
--- NOTE | 2022-01-03 16:07 | NUR ---
Patient assisted up to the bathroom and is able to void and returns to room. Urine strained and no stones noted. Asking for more pain medication. Will ask for more pain medication.
--- NOTE | 2022-01-03 16:45 | NUR ---
States that she is beginning to have pain again. Rates pain at 8/10 and 50mcg of Fentanyl repeated per order of Hola Mckoy CRNA.
[2022-01-03] MEDS ORDERED: PERCOCET 325 MG1 TA2 PO (18:05)
[2022-01-03 19:18] VITALS: BP 144/90; PULSE 69; TEMP 98
[2022-01-03 20:02] VITALS: BP 116/82; PULSE 80
--- NOTE | 2022-01-03 21:25 | NUR ---
PATIENT TO ROOM 349 AT 1900. ALERT AND ORIENTED. C/O MILD PAIN. PRN TYLENOL GIVEN. REQUESTED SCRIPTS BE SENT TO DIFFERENT PHARMACY AND CANNOT BE DONE. CALL TO BY [facility] AND HOME [facility] ORDER IN PLACE AND GIVEN TO PATIENT. IV TO [facility] DC'[facility]. BANDAID APPLIED. VSS. DISCHARGE CRITERIA MET. PATIENT ATE, TOLERATED FOOD, VOIDED WITHOUT ISSUE. PATIENT DISCHARGED HOME WITH FRIENDS AT 1999. AMBULATED OUT BY THIS NURSE.
== END 2022-01-03 20:00 | disposition home or self-care (01) ==
LOC: SDCO 13:48 → SURG 19:09 → SDCO 20:00
DX: N20.2 Calculus of kidney with calculus of ureter (principal); Q61.5 Medullary cystic kidney; F17.210 Nicotine dependence, cigarettes, uncomplicated; Z79.899 Other long term (current) drug therapy
CPT/HCPCS: OP; C1769; J0690; J1100; J1940; J2270; J2405; J2704; J3010; J7120; Q9967

== ENCOUNTER 2022-01-16 13:52 | Emergency (ER) | payer SELFPAY ==
[~2022-01-16] VITALS: Ht 154.9 cm; Wt 89.5 kg
[~2022-01-16 13:52] MED LIST changes: +FLOMAX 0.40.4 MG/CAP PO; +ZYPREXA15 MG PO
[2022-01-16 14:42] LABS: HEMATOCRIT 41.4 % (37.0-47.0); HEMOGLOBIN 13.7 g/dl (12.5-16.0); MEAN CELL VOLUME 90 fl (80.0-100.0); MEAN CORPUSCULAR HEMOGLOBIN 30 pg (27-31); MEAN CORPUSCULAR HGB CONC 33 g/dl (33.0-37.0); PLATELET COUNT 352 K/mm3 (130-400); RED BLOOD COUNT 4.61 M/mm3 (4.10-5.30); REDCELL DISTRIBUTION WIDTH-CV 13.2 % (11.5-14.5)
[2022-01-16 15:10] LABS: BILIRUBIN,TOTAL 0.2 mg/dL (0.2-1.2); CALCIUM 9.3 mg/dL (8.4-10.2); CREATININE, serum 0.83 mg/dL (0.57-1.11); POTASSIUM 3.4 mmol/L (3.5-4.5); TOTAL PROTEIN 7.5 gm/dL (6.2-8.1)
[2022-01-16 15:27] LABS: BAND 6 % (0-10); EOSINOPHIL 2 % (0-4); LYMPHOCYTE 38 % (20.0-51.0); NEUTROPHILS 51 % (42.0-75.2); PLATELET ESTIMATE NORMAL (NORMAL)
[2022-01-16] MEDS ORDERED: ZOFRAN ODT4 MG PO (15:52)
[2022-01-16] MEDS ORDERED: FLOMAX 0.40.4 MG/CAP PO (15:52)
[2022-01-16] MEDS ORDERED: NORCO 325 MG-7.1 TAB PO (15:52)
[2022-01-16 16:27] LABS: COLLECTION METHOD CLEAN CATCH
[2022-01-16 16:35] LABS: PH 7 (5-8); SQUAMOUS EPITHELIAL 0-2 /hpf (0-10); URINE APPEARANCE Clear (CLEAR/HAZY); URINE BACTERIA Rare /hpf (NONE SEEN); URINE BILIRUBIN Negative (NEGATIVE); URINE BLOOD Negative (NEGATIVE); URINE COLOR Yellow (YELLOW); URINE GLUCOSE Negative (NEGATIVE); URINE KETONE Negative (NEGATIVE); URINE LEUKOCYTE ESTERASE Negative (NEGATIVE); URINE NITRATE Negative (NEGATIVE); URINE PROTEIN(semi-quant) Negative (NEGATIVE); URINE RBC 0-2 /hpf (0-2); URINE UROBILINOGEN Negative (NEGATIVE)
[2022-01-16 16:52] VITALS: BP 100/57; PULSE 82; TEMP 97.7
== END 2022-01-16 16:55 | disposition home or self-care (01) ==
LOC: COL.ER 13:52
PROVIDERS: Emergency Medicine
DX: N13.2 Hydronephrosis with renal and ureteral calculous obstruction (principal); D72.829 Elevated white blood cell count, unspecified; Z98.890 Other specified postprocedural states; Z96.0 Presence of urogenital implants; Z32.02 Encounter for pregnancy test, result negative
CPT/HCPCS: J1170; J2405

== ENCOUNTER 2022-01-22 19:19 | Emergency (ER) | payer SELFPAY ==
[~2022-01-22] VITALS: Ht 154.9 cm; Wt 89.5 kg
[2022-01-22 19:26] VITALS: TEMP 97.7
[2022-01-22 20:17] LABS: BASO # 0.1 K/mm3 (0.0-0.2); EOS # 0.3 K/mm3 (0.0-0.7); EOS % 4.5 % (0.0-4.0); GRAN # 4.2 K/mm3 (1.4-6.5); GRAN % 57.8 % (42.2-75.2); HEMATOCRIT 40.9 % (37.0-47.0); HEMOGLOBIN 13.5 g/dl (12.5-16.0); LYMPH % 27.7 % (20.0-51.0); MEAN CELL VOLUME 91 fl (80.0-100.0); MEAN CORPUSCULAR HEMOGLOBIN 30 pg (27-31); MEAN CORPUSCULAR HGB CONC 33 g/dl (33.0-37.0); MEAN PLATELET VOLUME 9.2 fl (7.4-10.4); MONO # 0.7 K/mm3 (0.1-0.6); MONO % 8.9 % (1.7-9.3); PLATELET COUNT 311 K/mm3 (130-400); RED BLOOD COUNT 4.51 M/mm3 (4.10-5.30); REDCELL DISTRIBUTION WIDTH-CV 13.2 % (11.5-14.5)
[2022-01-22 20:28] LABS: COLLECTION METHOD CLEAN CATCH
[2022-01-22 20:33] LABS: CALCIUM 9.2 mg/dL (8.4-10.2); CREATININE, serum 0.73 mg/dL (0.57-1.11); POTASSIUM 3.9 mmol/L (3.5-4.5)
[2022-01-22 20:35] LABS: PH 6 (5-8); URINE APPEARANCE Clear (CLEAR/HAZY); URINE BACTERIA Rare /hpf (NONE SEEN); URINE BILIRUBIN Negative (NEGATIVE); URINE BLOOD Negative (NEGATIVE); URINE COLOR Yellow (YELLOW); URINE GLUCOSE Negative (NEGATIVE); URINE KETONE Negative (NEGATIVE); URINE LEUKOCYTE ESTERASE Negative (NEGATIVE); URINE NITRATE Negative (NEGATIVE); URINE PROTEIN(semi-quant) Negative (NEGATIVE); URINE RBC 0-2 /hpf (0-2); URINE UROBILINOGEN Negative (NEGATIVE); URINE WBC 0-2 /hpf (0-2)
[2022-01-22 21:33] VITALS: BP 112/98; PULSE 82
== END 2022-01-22 21:41 | disposition home or self-care (01) ==
LOC: COL.ER 19:19
PROVIDERS: Emergency Medicine
DX: R10.9 Unspecified abdominal pain (principal); F17.210 Nicotine dependence, cigarettes, uncomplicated; Z32.02 Encounter for pregnancy test, result negative
CPT/HCPCS: J1170